=== PATIENT | male | born 1960 | race Caucasian/White ===

== ENCOUNTER 2020-04-28 07:30 | Inpatient (IN) | payer MEDICAID, OTHER ==
[2020-04-28 11:42] VITALS: BP 107/68
[2020-04-28] MEDS ORDERED: Albuterol 2 mg/5 mL UDC PO PRN (13:23)
[2020-04-28 14:15] LABS: CHOLESTEROL 114 mg/dL (<200); LDL CHOLESTEROL 52 mg/dL (0-129); TRIGLYCERIDES 58 mg/dL (30-150)
[2020-04-28 14:16] LABS: CREATININE - SERUM 0.99 mg/dL (0.70-1.30); POTASSIUM SERUM 4.4 mmol/L (3.5-5.1)
[2020-04-28 14:17] LABS: BILIRUBIN,TOTAL 0.5 mg/dL (0.0-1.0); CALCIUM SERUM 8.4 mg/dL (8.4-10.2); TOTAL PROTEIN,SERUM 6.3 g/dL (6.4-8.3)
--- NOTE | 2020-04-28 16:06 | History and Physical ---
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: No Pertinent Hx GI: Report: GERD, Other (Hepatitis) Psych: Report: Bipolar, Schizophrenia Musculoskeletal: Report: No Pertinent Hx Rheumatologic: Report: No pertinent Hx Infectious Disease: Report: No Pertinent Hx Renal/: Report: No Pertinent Hx Endocrine: Report: Diabetes Dermatology: Report: No Pertinent Hx - Past Surgical History Past Surgical History: Appendectomy, Hernia Repair, Other (Shoulder Surgery Back Surgery) Family Medical History - Family Member Mother History Unknown: Yes Social History Smoke: # pack years (Unknown) Alcohol: Occassional Drugs: Marijuana Lives: Other (Board and Care) - Medications Home Medications: Home Medication Medication Instructions Recorded Type Albuterol Liquid [Ventolin*] 180 mcg INH QID PRN 04/28/20 History Benztropine [Cogentin*] 2 mg PO DAILY 04/28/20 History Gabapentin [Neurontin] 600 mg PO TID 04/28/20 History Mirtazapine [Mirtazapine*] 30 mg PO HS 04/28/20 History OLANZapine [ZyPREXA] 20 mg PO QPM 04/28/20 History Paliperidone Palmitate [Invega 234 mg IM ONCE 04/28/20 History Sustenna] Trihexyphenidyl HCl [Artane] 5 mg PO TID 04/28/20 History - Allergies Allergies/Adverse Reactions: Allergies Allergy/AdvReac Type Severity Reaction Status Date / Time No Known Allergies Allergy Verified 04/28/20 11:42 Review of Systems - Review of Systems Constitutional: Report: No Significant Eyes: Report: No Significant ENT: Report: No Significant Respiratory: Report: No Significant Cardiovascular: Report: No Significant Gastrointestinal: Report: No Significant Genitourinary: Report: No Significant Musculoskeletal: Report: No Significant Skin: Report: Rash Neurological: Report: No Significant Physical Exam - Physical Exam HEENT: Report: Ears Nose Throat within normal limits Neck: Report: Within normal limits Cardiovascular Systems: Report: +s1/s2 noted, Regular, Rate and Rhythm, no murmurs noted Respiratory: Report: Breath Sounds are within normal limits, Clear to Auscultation of lung coreas Abdomen: Report: Non-tender to palpation, Bowel Sounds are within normal limits Back: Report: Inspection of back is within normal limits. Extremities: Report: Non-tender to palpation. Skin: Report: Skin Rash noted Neuro/Psych: Report: CN II-XII intact, No motor deficit, No sensory deficit - Lab Results All Lab Results last 24 hours: Laboratory Results - last 24 hr 04/28/20 04/28/20 10:50 10:50 Sodium 137 Potassium 4.4 Chloride 104 Carbon Dioxide 27 Anion Gap 10 BUN 22 H Creatinine 0.99 Glucose 86 Calcium 8.4 Total Bilirubin 0.5 AST 371 H ALT 76 Alkaline Phosphatase 64 Total Protein 6.3 L Albumin 3.0 L Triglycerides 58 Cholesterol 114 LDL Cholesterol 52 HDL Cholesterol 55 - Assessment Assessment: * Acute Joleen/Psychosis * 5150 Hold * DM * Hepatitis * Biipolar * Schizophrenia * GERD * H/O Right Inguinal Hernia Surgery * H/O Appendectomy * H/O Back Surgery * H/O Shoulder Surgery * Tobacco Abuse * Alcohol Abuse * Cannabis Abuse - Plan Plan: * Admitted to [facility] * Psychiatry Consult * Obtain labs on Thursday Cranial Nerve Assessment - CRANIAL NERVES alcohol swab:: Yes Distinguishes movements in peripheral field.:: Yes up, down, sideways:: Yes on forehead, cheeks and chin, chews symmetrically:: Yes FACIAL VII: upper: Frowns Symmetrically:: Yes FACIAL VII: Lower: Smiles Symmetrically:: Yes both ears:: Yes GLOSS-PHARYNGEAL IX: Has gag reflex:: Yes VAGUS X: Can make guttural sounds:: Yes ACCESSORY XI: Shrugs shoulders symmetrically:: Yes tremors or fasciculation's:: Yes - MOTOR spasticity, cogwheel, atrophy, tremor, asterixis, other: Yes - COORDINATION Finger to nose, heel to benton, MIHAI, gait, Romberg: Yes - SENSORY signs, Brudzinski, Kernig, neck rigidity:: Yes - REFLEXES Brachioradials Right:: Yes Brachioradials Left:: Yes Biceps Right:: Yes Biceps Left:: Yes Triceps Right:: Yes Triceps Left:: Yes Knee Right:: Yes Knee Left:: Yes Ankle Right:: Yes Ankle Left:: Yes Babinski Right:: No Babinski Left:: No
[2020-04-28] MEDS ORDERED: Albuterol 2 mg/5 mL UDC PO SCH (17:00)
--- NOTE | 2020-04-29 02:10 | Psychiatric Evaluation ---
DATE OF SERVICE: 04/28/2020 IDENTIFYING DATA: The patient is a 59-year-old male, resident of a [facility]. Information obtained by directly interviewing the patient as well as reviewing the admission papers and they are reliable. JUSTIFICATION FOR HOSPITALIZATION: The patient is admitted here on a 5150 as being gravely disabled and danger to others. CHIEF COMPLAINT: "When I do not take the medication, I am in trouble." HISTORY OF PRESENT ILLNESS: This is the first psychiatric hospitalization to [facility] for this patient, who is reported to have been diagnosed to have psychiatric problems for a long period of time and is currently on multiple medications such as Zyprexa, Invega, ____, Cogentin and mirtazapine; however, the patient's compliance with the medications is noted to be very poor. The patient has been acting very bizarre and hence has been placed on 5150 and admitted over here for stabilization. PAST PSYCHIATRIC HISTORY: The patient is endorsing that he was in hospital before, but could not recollect how many times that he was there. MEDICAL HISTORY: Physical examination has been requested to be done by Dr. Hein. SUBSTANCE ABUSE HISTORY: The patient denies history of any drugs or alcohol. LEGAL PROBLEMS: None at this time. PHYSICAL OR SEXUAL ABUSE HISTORY: Noted to be none. MENTAL STATUS EXAMINATION: The patient is a 59-year-old, looking his stated age, superficially cooperative. Eye contact is poor. Mood is noted to be irritable. Affect is constricted. The patient's speech is noted to be pressured. The patient is going on a tangent. Coping skills are noted to be poor. The patient has been having acute mood swings. The patient is alert and oriented x 3, to place, person and situation. Attention span is noted to be poor. The patient appears to be of average intelligence. The patient's behavior is danger to self at this time. The patient is gravely disabled. DIAGNOSES: AXIS I: Schizoaffective disorder. AXIS II: None. AXIS III: As per Dr. Hein. IMMEDIATE TREATMENT PLAN: The patient is going to be observed on the inpatient unit and provided with supportive psychotherapy. The patient is going to be continued on Zyprexa, Cogentin, and mirtazapine. ESTIMATED LENGTH OF STAY: 3-5 days. DISCHARGE CRITERIA: When he no longer is a threat to self or others and be able to cope up with the stress. JOB# [id number]
[2020-04-29 07:19] LABS: A1C 5.4 % (4.8-5.6)
[2020-04-29] MEDS: Multivitamin Tab PO SCH (08:49)
--- NOTE | 2020-04-30 02:42 | Progress Notes ---
DATE: 04/29/2020 SUBJECTIVE: Staff was spoken to. The patient is interviewed. Mood is noted to be irritable. Affect is constricted. Insight and judgment are noted to be still impaired. Impulse control is noted to be limited. The patient has been having acute mood swings. Paranoid delusions are noted. The patient is going on a tangent. The patient is not able to care for self. ASSESSMENT: The patient is still grossly psychotic and a danger to self and others. PLAN: To continue the patient with the current medications and followup. JOB# [id number]
[2020-04-30] MEDS: Multivitamin Tab PO SCH (09:12)
[2020-04-30 11:45] LABS: % NEUTROPHILS 71.9 % (40-70); HEMATOCRIT 36.6 % (36-54); HEMOGLOBIN 12.2 g/dL (14.0-18.0); MEAN CORPUSCULAR HEMOGLOBIN 29 pg (27-31); MEAN CORPUSCULAR HGB CONC 33 % (32-36); MEAN CORPUSCULAR VOLUME 87 fL (79.0-98.0); PLATELET COUNT 259 K/uL (130-430); RED BLOOD COUNT 4.21 MIL/uL (4.2-6.2); RED CELL DISTRIBUTION WIDTH 15.5 % (9.0-15.0); WHITE BLOOD COUNT 6.4 K/uL (4.8-10.8)
[2020-04-30 11:46] LABS: BASOPHILS # (AUTO) 0.1 K/uL (0.0-0.2); BASOPHILS % (AUTO) 0.9 % (0.0-2.0); EOSINOPHILS # (AUTO) 0.1 K/uL (0.0-0.4); EOSINOPHILS % (AUTO) 2.2 % (0-4); LYMPHOCYTES # (AUTO) 1.1 K/uL (1.0-5.5); LYMPHOCYTES % (AUTO) 17.5 % (20.5-51.5); MONOCYTES # (AUTO) 0.5 K/uL (0.0-1.0); MONOCYTES % (AUTO) 7.5 % (1.7-9.3); NEUTROPHILS # (AUTO) 4.6 K/uL (1.8-7.7)
[2020-04-30 11:54] LABS: POTASSIUM SERUM 4.6 mmol/L (3.5-5.1)
[2020-04-30 11:55] LABS: BILIRUBIN,TOTAL 0.2 mg/dL (0.0-1.0); CALCIUM SERUM 8.7 mg/dL (8.4-10.2); CREATININE - SERUM 0.77 mg/dL (0.70-1.30); TOTAL PROTEIN,SERUM 6.4 g/dL (6.4-8.3)
--- NOTE | 2020-05-01 00:50 | Progress Notes ---
DATE: 04/30/2020 PSYCHIATRIC PROGRESS NOTE SUBJECTIVE: Staff was spoken to. The patient is interviewed. Mood is noted to be irritable. Affect is constricted. The patient is hyperactive and has been pacing most of the time on the unit. Insight and judgment at this time are noted to be still impaired. Impulse control is noted to be limited. Coping skills are noted to be limited. The patient is very impulsive and needs to be redirected. Currently, the patient has been on olanzapine and mirtazapine and has been able to tolerate the medications. ASSESSMENT: The patient is still impulsive and psychotic. PLAN: To continue the patient with the supportive therapy, encouraged the patient to verbalize the concerns rather than to act out. JOB# [id number]
[2020-05-01] MEDS: Multivitamin Tab PO SCH (08:29)
--- NOTE | 2020-05-01 13:00 | Progress Notes ---
DATE: 05/01/2020 SUBJECTIVE: Staff was spoken to. The patient is interviewed. Mood is noted to be irritable. The patient is pacing most of the time on making too many phone calls stating that he needs to take care of his business. Insight and judgment at this time are noted to be still impaired. Impulse control is noted to be ____ poor. The patient is noted to be hyperactive at this time and we are looking for possibly a mood stabilizer, but the patient is reluctant and stating that he is taking enough medications and the patient is currently on gabapentin and Zyprexa and has been able to tolerate the medication. ASSESSMENT: The patient is still having mood swings and paranoia. PLAN: To continue the patient with the supportive therapy and followup. JOB# [id number]
[2020-05-02] MEDS: Multivitamin Tab PO SCH (09:25)
--- NOTE | 2020-05-02 15:13 | Progress Notes ---
DATE: 05/02/2020 SUBJECTIVE: Staff was spoken to. The patient is interviewed. Mood is noted to be irritable. Affect is constricted. The patient has been pacing on the unit. Coping skills are noted to be still poor. The patient has no insight into his illness. The patient's sleep and appetite are noted to be improving at this time. No side effects to the medications are noted. ASSESSMENT: The patient is still psychotic and having mood swings. PLAN: To continue the patient with the supportive therapy and followup. JOB# [id number]
[2020-05-03] MEDS: Multivitamin Tab PO SCH (08:48)
--- NOTE | 2020-05-03 09:39 | Progress Notes ---
DATE: 05/03/2020 SUBJECTIVE: Staff was spoken to. The patient is interviewed. Mood is noted to be irritable. Affect is constricted. Insight and judgment at this time are noted to be still impaired. Impulse control is noted to be limited. The patient has been pacing most of the time, continues to be very paranoid. The patient is currently on the olanzapine and mirtazapine and has been able to tolerate the medications are noted. ASSESSMENT: The patient is still psychotic and impulsive. PLAN: To continue the patient with the supportive therapy and followup. JOB# [id number]
[2020-05-04] MEDS: Multivitamin Tab PO SCH (08:55)
--- NOTE | 2020-05-04 11:56 | Progress Notes ---
DATE: 05/04/2020 SUBJECTIVE: Staff was spoken to. The patient is interviewed. Mood is noted to be anxious. The patient has no place to return, but is still stating that he has many places to go to. Coping skills are noted to be still poor. Insight and judgment are noted to be still impaired. Impulse control seems to be improving at this time. ASSESSMENT: The patient continues to be paranoid. PLAN: To continue the patient with the supportive therapy, encouraged the patient to verbalize the concerns rather than to act out. JOB# [id number]
[2020-05-05] MEDS: Multivitamin Tab PO SCH (09:10)
--- NOTE | 2020-05-05 13:23 | Progress Notes ---
DATE: 05/05/2020 SUBJECTIVE: Staff was spoken to. The patient is interviewed. Mood is noted to be anxious. The patient's insight and judgment at this time are noted to be improving. Impulse control seems to be fair. The patient is stating that he has been trying to get in touch with the board and care and no one is responding. corporate traffic manager has been reporting that the patient is going to be picked up on 05/08/2020. The patient at this time has been able to participate in the groups. No side effects to the medications are noted. ASSESSMENT: The patient's mood swings are coming under control. Psychosis is resolving. PLAN: To continue the patient with the supportive therapy and await for placement. JOB# [id number]
--- NOTE | 2020-05-05 14:42 | General Progress Note ---
Subjective - Review of Systems Service Date: 05/05/20 Subjective: * Complains of low back pain * Currently on Ibuprofen PRN Objective - Results Result Diagrams: 04/30/20 09:50 04/30/20 09:50 Recent Labs: Laboratory Last Values WBC 6.4 K/uL (4.8-10.8) 04/30/20 09:50 RBC 4.21 MIL/uL (4.2-6.2) 04/30/20 09:50 Hgb 12.2 g/dL (14.0-18.0) L 04/30/20 09:50 Hct 36.6 % (36-54) 04/30/20 09:50 MCV 87 fL (79.0-98.0) 04/30/20 09:50 MCH 29 pg (27-31) 04/30/20 09:50 MCHC 33 % (32-36) 04/30/20 09:50 RDW 15.5 % (9.0-15.0) H 04/30/20 09:50 Plt Count 259 K/uL (130-430) 04/30/20 09:50 MPV 8.6 fl (7.4-10.4) 04/30/20 09:50 Neut % (Auto) 71.9 % (40-70) H 04/30/20 09:50 Lymph % (Auto) 17.5 % (20.5-51.5) L 04/30/20 09:50 [place] % (Auto) 7.5 % (1.7-9.3) 04/30/20 09:50 Eos % (Auto) 2.2 % (0-4) 04/30/20 09:50 Baso % (Auto) 0.9 % (0.0-2.0) 04/30/20 09:50 Neut # (Auto) 4.6 K/uL (1.8-7.7) 04/30/20 09:50 Lymph # (Auto) 1.1 K/uL (1.0-5.5) 04/30/20 09:50 [place] # (Auto) 0.5 K/uL (0.0-1.0) 04/30/20 09:50 Eos # (Auto) 0.1 K/uL (0.0-0.4) 04/30/20 09:50 Baso # (Auto) 0.1 K/uL (0.0-0.2) 04/30/20 09:50 Sodium 139 mmol/L (136-145) 04/30/20 09:50 Potassium 4.6 mmol/L (3.5-5.1) 04/30/20 09:50 Chloride 106 mmol/L (98-107) 04/30/20 09:50 Carbon Dioxide 26 mmol/L (23-29) 04/30/20 09:50 Anion Gap 12 (5-15) 04/30/20 09:50 BUN 21 mg/dL (8-21) 04/30/20 09:50 Creatinine 0.77 mg/dL (0.70-1.30) 04/30/20 09:50 Glucose 98 mg/dL (70-99) 04/30/20 09:50 Hemoglobin A1c 5.4 % (4.8-5.6) 04/28/20 10:50 Calcium 8.7 mg/dL (8.4-10.2) 04/30/20 09:50 Total Bilirubin 0.2 mg/dL (0.0-1.0) 04/30/20 09:50 AST 161 U/L (10-37) H D 04/30/20 09:50 ALT 68 U/L (12-78) 04/30/20 09:50 Alkaline Phosphatase 67 U/L (46-116) 04/30/20 09:50 Total Protein 6.4 g/dL (6.4-8.3) 04/30/20 09:50 Albumin 3.0 g/dL (3.4-5.0) L 04/30/20 09:50 Triglycerides 58 mg/dL (30-150) 04/28/20 10:50 Cholesterol 114 mg/dL (<200) 04/28/20 10:50 LDL Cholesterol 52 mg/dL (0-129) 04/28/20 10:50 HDL Cholesterol 55 mg/dL (>45) 04/28/20 10:50 - Physical Exam Vitals and I&O: Vital Signs Temp 97.1 F 05/04/20 20:41 Pulse 88 05/04/20 20:41 Resp 20 05/05/20 07:54 BP 115/74 05/04/20 20:41 Pulse Ox 97 05/04/20 20:41 Intake & Output 05/04/20 05/05/20 05/05/20 18:59 06:59 18:59 Intake Total 1200 360 Balance 1200 360 Intake: Oral 1200 360 Other: # Voids 2 # Bowel Movements 1 0 Active Medications: Current Medications Acetaminophen (Tylenol) 650 mg PO Q4H PRN PRN Reason: Pain (Mild 1-3) Stop: 06/27/20 11:41 Last Admin: 05/01/20 14:34 Dose: 650 mg Al Hydrox/Mg Hydrox/Simethicone (Maalox) 30 ml PO Q4HR PRN PRN Reason: GI DISTRESS Stop: 06/27/20 11:41 Benztropine Mesylate (Cogentin) 1 mg PO DAILY MATTHIEU Stop: 06/28/20 08:59 Last Admin: 05/05/20 09:10 Dose: 1 mg Gabapentin (Neurontin) 600 mg PO TID MATTHIEU Stop: 06/27/20 13:59 Last Admin: 05/05/20 13:14 Dose: 600 mg Ibuprofen (Motrin) 400 mg PO TID PRN PRN Reason: Pain (Moderate 4-6) Stop: 06/29/20 20:59 Last Admin: 05/05/20 13:14 Dose: 400 mg Lorazepam (Ativan) 0.5 mg PO Q4HR PRN; Protocol PRN Reason: Anxiety Stop: 06/28/20 07:40 Last Admin: 05/02/20 13:54 Dose: 0.5 mg Mirtazapine (Remeron) 30 mg PO HS MATTHIEU; Protocol Stop: 06/27/20 20:59 Last Admin: 05/04/20 21:10 Dose: 30 mg Multivitamins/Vitamin C (Theragran) 1 tab PO DAILY MATTHIEU Stop: 06/28/20 08:59 Last Admin: 05/05/20 09:10 Dose: 1 tab Olanzapine (Zyprexa) 20 mg PO HS MATTHIEU; Protocol Stop: 06/27/20 20:59 Last Admin: 05/04/20 21:10 Dose: 20 mg Zolpidem Tartrate (Ambien) 5 mg PO HS PRN PRN Reason: Insomnia Stop: 06/27/20 11:41 Last Admin: 05/04/20 21:10 Dose: 5 mg General: Alert, No acute distress Cardiovascular: Regular rate, Normal S1, Normal S2 Lungs: Clear to auscultation Abdomen: Bowel sounds, Soft Other physical findings: Tenderness bilateral lower back Assessment/Plan - Assessment Assessment: * Acute Joleen/Psychosis * 5150 Hold * DM * Hepatitis * Biipolar * Schizophrenia * GERD * H/O Right Inguinal Hernia Surgery * H/O Appendectomy * H/O Back Surgery * H/O Shoulder Surgery * Tobacco Abuse * Alcohol Abuse * Cannabis Abuse * Low Back Pain * Lumbar Sprain - Plan Plan: * Change Ibuprofen to 600 mg PO TID with food * Add Baclofen 10 mg PO qhs * Obtain PT eval if no improvement after 2 weeks Nutritional Asmnt/Malnutr-PDOC - Dietary Evaluation Malnutrition Findings (Please click <Entered> for more info): Nutritional Asmnt/Malnutrition Start: 05/01/20 10: 48 Text: Status: Complete Freq: Protocol: Document 05/01/20 10:48 REBA (Rec: 05/01/20 10:51 REBA [id number]) Nutritional Asmnt/Malnutrition Patient General Information Nutritional Screening Moderate Risk Diagnosis Danger to Self Pertinent Medical Hx/Surgical Hx GERD, Hepatitis, Bipolar, Schizophrenia, Diabetes, Appendectomy, Hernia Repair Subjective Information Pt is a 59-year-old male admitted on 04/28 d/t danger to self with erratic behavior, flight of thought and talking to himself. Pt is eating an 100% of meals sine admit date (x2 days) Per Meal/Nutrition Activity Record. Dietary is currently providing an estimated 1800 kcals and 110 gm Pro to meet 100+% kcal and 100+% Pro needs. Anthropometrics HT: 53 WT: 117 LB (53.18 kg) BMI: 20.41 (normal) GI/ Skin Integrity GI: WNL, Soft, Flat, Non- tender BM: 04/29 x1 I/O: 240/Not Noted Skin: WNL, Intact Ovi: 21 Diet Order: CCHO 60gm Estimated Energy Needs: ( Geriatric, CBW) 0452-6218 kcals (25-30 kcals/ kg) 50-65g Pro (1.0-1.2 g/kg) 9793-8535 ml (25-30 ml/kg) Current Diet Order/ Nutrition Support CCHO 60gm Pertinent Medications Maalox (PRN), Theragran Pertinent Labs 04/30: Hgb/Hct 12.2/36.6, AST 161, Albumin 3.0 04/28: BUN/Cr 22/0.99, AST 371, Albumin 3.0, Total Protein 6. 3 Nutritional Hx/Data Height 1.6 m Height (Calculated Centimeters) 160.0 Current Weight (lbs) 53.07 kg Weight (Calculated Kilograms) 53.1 Weight (Calculated Grams) 43074.3 [place] Body Weight 124 LB (56.36 kg) % [place] Body Weight 94 Body Mass Index (BMI) 20.7 Weight Status Approriate GI Symptoms Last BM 04/29 x1 Skin Integrity/Comment: Skin: WNL, Intact Ovi: 21 Estimated Nutritional Goals BEE in Kcals: Using Current wt Calories/Kcals/Kg 25-30 Kcals Calculated 0322-8362 Protein: Using Current wt Protein g/k.0-1.2 Protein Calculated 50-65 Fluid: ml 7573-1882 ml (25-30 ml/kg) Nutritional Problem No current Nutrition Prob Problem No nutrition diagnosis at this time. Etiology N/A Signs/Symptoms: N/A Malnutrition Related to Morbid Obesity Malnutrition related to morbid obesity No Intervention/Recommendation Comments Continue CCHO 60gm diet as tolerated. Expected Outcomes/Goals Expected Outcomes/Goals 1.PO intake to continue to meet >75% of estimated nutritional needs. 2.Monitor PO intake, wt, skin integrity, and nutrition related labs. 3.F/U as low risk in 7-10 days , 05/08-05/11.
[2020-05-05] MEDS ORDERED: PALIPERIDONE PALMITATE 234 MG IM SCH (14:45)
[2020-05-06] MEDS: Benztropine 1 MG TAB PO SCH (08:38)
[2020-05-06] MEDS: Multivitamin Tab PO SCH (08:39)
[2020-05-06] MEDS: Maalox 30 mL Cup PO PRN ×2 (17:41→21:20)
--- NOTE | 2020-05-06 20:26 | Progress Notes ---
DATE: 05/06/2020 PSYCHIATRIC PROGRESS NOTE SUBJECTIVE: Staff was spoken to. The patient is interviewed. Mood is noted to be anxious. The patient's insight and judgment at this time are noted to be improving. Impulse control seems to be fair. The patient is stating that he has to get back to the board and care and housing case manager has been mentioning there are some procedural issues and they are willing to take the patient on 05/08/2020. ASSESSMENT: The patient's paranoia is resolving. Impulse control is coming under control. PLAN: To continue the patient with the supportive therapy and follow up. JOB# [id number]
[2020-05-07] MEDS: Multivitamin Tab PO SCH (08:17)
[2020-05-07] MEDS: Benztropine 1 MG TAB PO SCH ×3 (08:18→11:29)
--- NOTE | 2020-05-07 13:53 | Progress Notes ---
DATE: 05/07/2020 SUBJECTIVE: Staff was spoken to. The patient is interviewed. Mood is noted to be anxious. Insight and judgment at this time are noted to be improving. Impulse control seems to be fair. No side effects to the medications are noted. The patient, however, has been mentioning that he is sleeping too much and his mouth is also very dry and hence it is decided to decrease the dose on the Remeron to 15 mg at bedtime rather than to 30 mg and I encouraged the patient to verbalize the concerns rather than to act out. The patient is denying any command hallucinations, but the patient has paranoia. No aggressive behavior is noted. No major behavioral problems are noted at this time. ASSESSMENT: The patient is still paranoid. PLAN: To continue the patient with the supportive therapy and await for placement of this patient. JOB# [id number]
[2020-05-07] MEDS: Maalox 30 mL Cup PO PRN ×2 (16:50→20:54)
[2020-05-08] MEDS: Multivitamin Tab PO SCH (08:20)
[2020-05-08] MEDS: Benztropine 1 MG TAB PO SCH (08:20)
[2020-05-08 14:13] LABS: BILIRUBIN,TOTAL 0.1 mg/dL (0.0-1.0); CALCIUM SERUM 7.8 mg/dL (8.4-10.2); CREATININE - SERUM 0.77 mg/dL (0.70-1.30); POTASSIUM SERUM 4.1 mmol/L (3.5-5.1); TOTAL PROTEIN,SERUM 5.5 g/dL (6.4-8.3)
--- NOTE | 2020-05-08 23:07 | Progress Notes ---
DATE: 05/08/2020 PSYCHIATRIC PROGRESS NOTE SUBJECTIVE: Staff was spoken to. The patient is interviewed. Mood is noted to be irritable. Affect is constricted. Insight and judgment are noted to be improving. Impulse control seems to be fair. Coping skills are also noted to be fair. No side effects to the medications are noted. The patient is willing to comply with the treatment. ASSESSMENT: The patient is stabilizing. PLAN: To discharge the patient today, will follow up on outpatient basis. JOB# [id number]
== END 2020-05-08 15:35 | DRG 885 ==
LOC: GERO 07:30
PROVIDERS: ADMIT Psychiatry & Neurology Psychiatry; ATTEND Psychiatry & Neurology Psychiatry
DX: F25.9 Schizoaffective disorder, unspecified (principal); E44.0 Moderate protein-calorie malnutrition; K75.9 Inflammatory liver disease, unspecified; K21.9 Gastro-esophageal reflux disease without esophagitis; F10.10 Alcohol abuse, uncomplicated; E11.9 Type 2 diabetes mellitus without complications; F17.200 Nicotine dependence, unspecified, uncomplicated; Z90.49 Acquired absence of other specified parts of digestive tract; F31.9 Bipolar disorder, unspecified; Y90.9 Presence of alcohol in blood, level not specified; S33.5XXA Sprain of ligaments of lumbar spine, initial encounter; X58.XXXA Exposure to other specified factors, initial encounter; F12.10 Cannabis abuse, uncomplicated; Z68.20 Body mass index [BMI] 20.0-20.9, adult
CPT/HCPCS: 36415-UA; 80053-TC; 80061-TC; 83036-90; 85025-TC; 90899; G0410; J7051; U0003-CS; Z7610